=== PATIENT | female | born 1985 | race Caucasian/White ===

== ENCOUNTER 2017-06-08 08:00 | Day surgery (SDC) | payer BC ==
[2017-06-05 15:13] LABS: BASOPHILS % (AUTO) 0.3 % (0-1); EOSINOPHILS # (AUTO) 0.1 X10'3 (0-0.9); EOSINOPHILS % (AUTO) 1.9 % (0-6); LYMPHOCYTES # (AUTO) 2.7 X10'3 (1.1-4.8); LYMPHOCYTES % (AUTO) 35.3 % (21-51); MEAN CORPUSCULAR HEMOGLOBIN 28.7 PG (27.0-31.0); MEAN CORPUSCULAR VOLUME 84.4 FL (78-98); MEAN PLATELET VOLUME 7.8 FL (7.4-10.4); MONOCYTES # (AUTO) 0.5 X10'3 (0-0.9); MONOCYTES % (AUTO) 7.1 % (2-12); NEUTROPHILS # (AUTO) 4.2 X10'3 (1.8-7.7); NEUTROPHILS % (AUTO) 55.4 % (42-75); PRE OP HEMATOCRIT 40.3 % (35.0-45.0); PRE OP HEMOGLOBIN 13.7 g/dL (12.0-16.0); PRE OP PLATELET COUNT 356 X10'3 (140-440); RED BLOOD COUNT 4.77 X10'6 (4.20-5.60); RED CELL DISTRIBUTION WIDTH 13.4 % (11.5-14.5)
[2017-06-05 15:25] LABS: HCG SERUM QL NEGATIVE
[2017-06-05 15:30] LABS: ALBUMIN 3.9 G/DL (3.4-5.0); ALBUMIN/GLOBULIN RATIO 0.9 (1.1-1.5); ALKALINE PHOSPHATASE 113 IU/L (46-116); BLOOD UREA NITROGEN 13 MG/DL (7-18); BUN/CREATININE RATIO 20.6 (6.6-38.0); CALCIUM 9.2 MG/DL (8.5-10.1); CHLORIDE 103 MMOL/L (99-107); CREATININE 0.63 MG/DL (0.40-0.90); PRE OP ALT 36 U/L (30-65); PRE OP ANION GAP 7 (8-16); PRE OP AST 14 U/L (10-37); PRE OP BILIRUB, TOTAL 0.6 MG/DL (0.0-1.0); PRE OP GLUCOSE 189 MG/DL (70-104); PRE OP POTASSIUM 4.1 MMOL/L (3.4-5.1); PRE OP SODIUM 136 MMOL/L (135-145); TOTAL CARBON DIOXIDE 26.3 MMOL/L (24-32); TOTAL PROTEIN 8.1 G/DL (6.4-8.2); eGFR > 90 ML/MIN
[2017-06-08] VITALS (10 sets, daily range): BP systolic 103–141; BP diastolic 53–81
[~2017-06-08] VITALS: Ht 167.6 cm; Wt 80.1 kg
[~2017-06-08 08:00] MED LIST: INSU100V30 SQ; LANTUS SQ
[2017-06-08] MEDS ORDERED: fentaNYL/PF 50MCG/1 ML 2ML syringe ONE (08:32)
[2017-06-08] MEDS ORDERED: midazolam 2 mg/2 ml injection ONE (08:33)
[2017-06-08] MEDS ORDERED: LIDOcaine 1% (10mg/ml) 2ml vial ONE (08:34)
[2017-06-08] MEDS ORDERED: LIDOcaine 2% (20mg/ml) 5ml vial ONE (08:35)
[2017-06-08] MEDS ORDERED: glycopyrrolate 0.2mg/ml inj ONE (08:35)
[2017-06-08] MEDS ORDERED: propofol inj 20 ML IV ONE (08:35)
[2017-06-08] MEDS ORDERED: rocuronium 10mg/ml inj IV ONE (08:35)
[2017-06-08] MEDS ORDERED: neostigmine methylsulfate 1 MG/ML 10ml vial ONE (08:35)
[2017-06-08] MEDS ORDERED: ondansetron/PF 4mg/2ml inj ONE (08:36)
[2017-06-08] MEDS ORDERED: ringers solution, lacted 1,000 ML IV SCH ×2 (08:40→08:42)
[2017-06-08] MEDS ORDERED: fentaNYL/PF 50MCG/1 ML 2ML syringe IV PRN (08:45)
[2017-06-08] MEDS ORDERED: hydrALAZINE 20mg/ml inj. IV PRN (08:45)
[2017-06-08] MEDS ORDERED: famotidine 20mg tablet PO ONE (08:45)
[2017-06-08] MEDS ORDERED: labetalol 5mg/ml 20ml inj. IV PRN (08:45)
[2017-06-08] MEDS ORDERED: ondansetron/PF 4mg/2ml inj IV PRN (08:45)
[2017-06-08] MEDS ORDERED: ketorolac trometh. 30mg/ml inj. ONE (08:48)
[2017-06-08] MEDS ORDERED: sevoflurane 250ml liquid IH ONE (08:48)
[2017-06-08] MEDS ORDERED: ceFAZolin 2gm in dextrose, iso 100 ML IV ONE (08:53)
[2017-06-08] MEDS ORDERED: ceFAZolin 1000mg inj ONE ×2 (08:59)
[2017-06-08] MEDS ORDERED: BUPIVAcaine/PF 2.5 mg/ml (0.25%) 30ml vial IJ ONE (09:56)
[2017-06-08] MEDS ORDERED: epiNEPHrine 1 MG/ML 1 ml ampule **BRONCH ONLY IJ ONE (09:56)
[2017-06-08] MEDS: fentaNYL/PF 50MCG/1 ML 2ML syringe IV PRN ×2 (10:35→10:43)
== END 2017-06-08 11:55 | disposition home or self-care (01) ==
LOC: PAS 08:00
PROVIDERS: ATTEND Obstetrics & Gynecology
DX: Z30.2 Encounter for sterilization (principal); E11.9 Type 2 diabetes mellitus without complications; I10 Essential (primary) hypertension; N73.6 Female pelvic peritoneal adhesions (postinfective); Z98.890 Other specified postprocedural states; Z79.4 Long term (current) use of insulin; Z88.0 Allergy status to penicillin
CPT/HCPCS: 36415; 58670; 80053; 82948; 84703; 85025; A6258; A6402; J0171; J0690; J2001; J2250; J2405; J2704; J2710; J3010; J3490; J7120; A7000; J1885